=== PATIENT | male | born 1940 | race Caucasian/White ===

== ENCOUNTER 2017-07-11 18:36 | Emergency (ER) | payer OTHER ==
[~2017-07-11] VITALS: Ht 177.8 cm; Wt 112.2 kg
[~2017-07-11 18:36] MED LIST: ACETAMINOPHEN325 M1 PO; ACIDOPHILUS CA1 EAC1 PO; ACIDOPHILUS1 EAC4 PO; ADVAIR HFA120 INHAL1 IH; ADVAIR HFA120 INHALA IH; ALLEGRA180 MG PO; ALPRAZOLAM0.25 M2 PO; ALPRAZOLAM0.25 MG PO; ALPRAZOLAM0.5 MG PO; AMOXICILLIN500 MG PO; ASMANEX HFA13 GM IH; ASMANEX TW200 MICRO1 IH; ASMANEX TW30 INHALAT IH; ASPIRIN81 M1 PO; ASPIRIN81 M2 PO; ASTELIN NASAL SPRAY BOTH NARES; ASTELIN, ASTEPR30 ML NS; ASTEPRO 0.15%30 ML BOTH NARES; ATENOLOL25 MG PO; ATENOLOL50 MG PO; ATROVENT HFA12.9 GM IH; AZITHROMYCIN500 M1 PO; BUMETANIDE1 MG PO; BUMETANIDE2 MG PO; BUMEX1 MG PO; BUMEX2 MG PO; CALCITRIOL0.25 MCG PO; CEFDINIR300 MG PO; CEFTIN500 MG PO; CIPRO500 MG PO; CO Q-10100 MG PO; COENZYME Q10100 M1 PO; COQ-10100 MG PO; COUMADIN2 MG PO; COUMADIN2.5 MG PO; COUMADIN3 MG PO; CYMBALTA30 MG PO; CYMBALTA60 MG PO; DULCOLAX10 MG PO; ERGOCALCIF50000 UNIT PO; GABAPENTIN100 MG PO; GLIMEPIRIDE2 MG PO; HUMALOG KW200 UNIT/1 SC; HUMALOG MI100 UNIT/5 SQ; HUMALOG MI100 UNIT/6 SC; HUMALOG100 UNIT/1 SC; HUMALOG100 UNIT/2 SC; IRON325 M1 PO; LEVEMIR FL100 UNIT/1 SC; LEVOFLOXACIN750 MG PO; LEXAPRO10 MG PO; LEXAPRO5 MG PO; LIPITOR40 MG PO; LISINOPRIL10 MG PO; LO-DOSE ASPIRIN81 M1 PO; LORATADINE10 M2 PO; MEDROL DOSEPAK4 MG PO; METOLAZONE2.5 MG PO; MULTIPLE VITAM1 EACH PO; MULTIVITAMIN1 EAC2 PO; NASACORT AQ16.5 GM BOTH NARES; NASACORT10.8 ML BOTH NARES; NEURONTIN100 MG PO; NOVOLOG MI100 UNIT/M PO; NOVOLOG MI100 UNIT/M SC; NovoLOG Mix 70/30 Vi SC; PERCOCET 5/31 TABLET PO; PHILLIPS'400 MG/5 M PO; POTASSIUM CHLO10 ME3 PO; POTASSIUM CHLO10 ME4 PO; PREDNISONE10 MG PO; PREDNISONE20 MG PO; PREDNISONE5 MG PO; PROBIOTIC1 EAC1 PO; PROBIOTIC1 EAC2 PO; PROTONIX40 MG PO; PROVENTIL HFA6.7 GM IH; PROVENTIL,2.5 MG/0.5 AEROSOL; PROVENTIL,2.5 MG/3 M IH; ROCALTROL0.25 MCG PO; ROPINIROLE HC0.25 MG PO; ROPINIROLE HCL0.5 MG PO; SINGULAIR10 MG PO; TOLTERODINE TART2 M1 PO; TYLENOL EXTRA500 MG PO; TYLENOL WITH C1 EACH PO; ULTRAM50 MG PO; VENTOLIN HFA18 GM IH; VESICARE10 MG PO; VESICARE5 MG PO; VITAMIN B-12500 MC2 PO; VITAMIN B12-FO1 EACH PO; VITAMIN C500 M1 PO; VITAMIN D50000 UNI4 PO; WARFARIN SODIUM1 MG PO; WARFARIN SODIUM2 MG PO; XANAX0.25 MG PO; XANAX0.5 MG PO; XOPENEX HFA15 GM IH; ZOFRAN ODT4 MG PO; ZYVOX600 MG PO
[2017-07-11 19:44] LABS: EOSINOPHIL (%) 0.1 % (0-5); HEMATOCRIT 40.3 % (38.0-50.0); IMMATURE GRANULOCYTE (%) 0.5 % (0.0-0.7); IMMATURE GRANULOCYTE COUNT 0.1 K/uL; INSTRUMENT ABS NEUTROPHIL CT 12.2 K/uL; MCH 31.8 PG (29.0-34.0); MCHC 33.7 G/DL (30.0-36.0); MCV 94.2 FL (86-99); MEAN PLAT.VOLUME 9.3 uM^3 (9.0-12.4); MONOCYTE (%) 13.3 % (3-12); MONOCYTE COUNT 2.1 K/uL (0-0.8); NEUTROPHIL (%) 79.1 % (45-76); NEUTROPHIL COUNT 12.2 K/uL (1.8-6.4); PLATELET COUNT 139 K/uL (156-360); RBC DIS.WIDTH-SD 51.9 % (39-53); RED BLOOD COUNT 4.28 M/uL (4.00-5.50); WHITE BLOOD COUNT 15.4 K/uL (4.1-10.2)
[2017-07-11 19:44] LABS: ADD MIUA? YES; BILIRUBIN NEGATIVE; BLOOD MODERATE; COLOR YELLOW ((YELLOW)); GLUCOSE (STRIP) NEGATIVE; KETONES NEGATIVE; LEUKOCYTES LARGE; NITRITE NEGATIVE; PROTEIN (STRIP) 100; SPECIFIC GRAVITY 1.013 (1.000-1.030); UROBILINOGEN 0.2 MG/DL (0.2-1.0)
[2017-07-11 19:48] LABS: BACTERIA 2+ /HPF; EPITHELIAL CELLS NONE SEEN /HPF; HYALINE CASTS 0-5 /LPF; MUCUS TRACE /LPF; RED BLOOD CELLS 40-50 /HPF (0-5); UCUL ADDED? YES; WHITE BLOOD CELLS TNTC /HPF (0-5)
[2017-07-11 19:49] LABS: INTER. NORMALIZED RATIO 2.4
[2017-07-11 19:53] LABS: CHLORIDE 102 mEq/L (99-109); POTASSIUM 3.5 mEq/L (3.7-5.4); SODIUM 140 mEq/L (136-147)
[2017-07-11 19:55] LABS: GLUCOSE 153 mg/dL (70-99)
[2017-07-11 19:56] LABS: ANION GAP 10 MEQ/L (2-14)
[2017-07-11 19:57] LABS: TOTAL BILIRUBIN 1.3 mg/dL (0.0-1.0)
[2017-07-11 19:59] LABS: ALKALINE PHOSPHATASE 63 IU/L (3-129); GFR ESTIMATE (CALCULATED) 42 mL/min/
[2017-07-11 20:00] LABS: UREA NITROGEN (BUN) 42 mg/dL (9-23)
[2017-07-11 22:00] VITALS: BP 100/76
== END 2017-07-11 22:54 ==
LOC: EME 18:36
PROVIDERS: Emergency Medicine
DX: R10.30 Lower abdominal pain, unspecified (principal); G89.29 Other chronic pain; I34.1 Nonrheumatic mitral (valve) prolapse; I10 Essential (primary) hypertension; Z86.73 Personal history of transient ischemic attack (TIA), and cerebral infarction without residual deficits; K21.9 Gastro-esophageal reflux disease without esophagitis; E11.9 Type 2 diabetes mellitus without complications; J44.9 Chronic obstructive pulmonary disease, unspecified; Z79.01 Long term (current) use of anticoagulants; Z79.4 Long term (current) use of insulin; I42.9 Cardiomyopathy, unspecified; Z79.82 Long term (current) use of aspirin
CPT/HCPCS: 80053; 81003; 85025; 85610; 87086; 99281; 99284

== ENCOUNTER 2017-09-19 20:31 | Inpatient (IN) | payer OTHER ==
[~2017-09-19] VITALS: Ht 177.8 cm; Wt 109.0 kg
[~2017-09-19 20:31] MED LIST changes: +ACIDOPHILUS LA1 EAC2 PO; +ARTIFICIAL TEAR15 M6 RIGHT EYE; +DULCOLAX10 MG PR; +DUONEB 2.5-0.5 M3 ML AEROSOL; +FLEET ENEMA-AD118 ML PR; +LIPITOR20 MG PO; +LOVENOX120 MG/0.8 SC; +MILK OF MAGN PO; +MUCINEX600 MG PO; +NEURONTIN300 MG PO; +TUSSIN100 MG/5 M PO; -VITAMIN D50000 UNI4 PO
[2017-09-19 21:29] LABS: POINT-OF-CARE METER ID UU13113702
[2017-09-19 21:53] LABS: CARBON DIOXIDE (BICARBONATE) 26.8 MEQ/L (20-31)
[2017-09-19 21:53] LABS: HEMATOCRIT 43.4 % (38.0-50.0); MCH 31.9 PG (29.0-34.0); MCHC 33.4 G/DL (30.0-36.0); MCV 95.6 FL (86-99); MEAN PLAT.VOLUME 9.8 uM^3 (9.0-12.4); RBC DIS.WIDTH-CV 14.4 % (11.8-14.6); RED BLOOD COUNT 4.54 M/uL (4.00-5.50); WHITE BLOOD COUNT 17.6 K/uL (4.1-10.2)
[2017-09-19 21:55] LABS: PLATELET COUNT 186 K/uL (156-360)
[2017-09-19 22:03] LABS: CHLORIDE 105 mEq/L (99-109); POTASSIUM 4.3 mEq/L (3.7-5.4); SODIUM 140 mEq/L (136-147)
[2017-09-19 22:06] LABS: GLUCOSE 240 mg/dL (70-99)
[2017-09-19 22:07] LABS: ANION GAP 13 MEQ/L (2-14); TOTAL BILIRUBIN 3.7 mg/dL (0.0-1.0)
[2017-09-19 22:09] LABS: ALKALINE PHOSPHATASE 136 IU/L (3-129); GFR ESTIMATE (CALCULATED) 48 mL/min/
[2017-09-19 22:10] LABS: UREA NITROGEN (BUN) 37 mg/dL (9-23)
[2017-09-19 22:11] LABS: DIRECT BILIRUBIN 2.6 mg/dL (0.0-0.3)
[2017-09-19 22:13] LABS: LIPASE 49 U/L (1.0-51.0)
[2017-09-19 22:26] LABS: INTER. NORMALIZED RATIO 1.2; PROTHROMBIN TIME 13.1 SEC (10.2-12.9)
[2017-09-19 22:31] LABS: TROP-I INTERPRETATION NEGATIVE; TROPONIN-I 0.08 ng/mL (0.0-0.30)
[2017-09-19 22:32] LABS: ADD MIUA? YES; BILIRUBIN NEGATIVE; BLOOD SMALL; GLUCOSE (STRIP) NEGATIVE; KETONES NEGATIVE; LEUKOCYTES LARGE; NITRITE POSITIVE; PROTEIN (STRIP) >=500; SPECIFIC GRAVITY 1.017 (1.000-1.030)
[2017-09-19 22:33] LABS: COLOR YELLOW ((YELLOW))
[2017-09-19 22:43] LABS: CASTS NONE SEEN /LPF; EPITHELIAL CELLS NONE SEEN /HPF; MUCUS NONE SEEN /LPF
[2017-09-19 22:44] LABS: BACTERIA 4+ /HPF; UCUL ADDED? YES; WHITE BLOOD CELLS TNTC /HPF (0-5)
[2017-09-20 06:42] LABS: POINT-OF-CARE METER ID UU13113774
[2017-09-20 07:31] VITALS: BP 114/59
[2017-09-20 11:01] LABS: POINT-OF-CARE METER ID UU13113725
[2017-09-20 11:16] VITALS: BP 132/72
[2017-09-20] MEDS ORDERED: DECARA50000 UNIT PO (13:47)
[2017-09-20] MEDS ORDERED: COUMADIN1 MG PO (14:28)
[2017-09-20] MEDS ORDERED: PROMETHAZINE HC25 M1 PO (14:35)
[2017-09-20 15:59] LABS: POINT-OF-CARE METER ID UU13113774
[2017-09-20 16:01] VITALS: BP 104/68
[2017-09-20 20:11] VITALS: BP 127/59
[2017-09-20 21:12] LABS: POINT-OF-CARE METER ID UU13113725
[2017-09-21 00:12] VITALS: BP 130/65
[2017-09-21 04:32] VITALS: BP 139/66
[2017-09-21 05:50] LABS: POINT-OF-CARE METER ID UU13113725
[2017-09-21 06:06] LABS: HEMATOCRIT 39.5 % (38.0-50.0); MCH 31.3 PG (29.0-34.0); MCHC 32.2 G/DL (30.0-36.0); MCV 97.3 FL (86-99); RBC DIS.WIDTH-SD 53.5 % (39-53); RED BLOOD COUNT 4.06 M/uL (4.00-5.50); WHITE BLOOD COUNT 14.5 K/uL (4.1-10.2)
[2017-09-21 06:40] LABS: CHLORIDE 105 MEQ/L (99-109); GFR ESTIMATE (CALCULATED) 20 mL/min/; GLUCOSE 147 mg/dL (70-99); POTASSIUM 4.9 MEQ/L (3.7-5.4); SODIUM 141 MEQ/L (136-147); TOTAL BILIRUBIN 4.7 MG/DL (0.0-1.0)
[2017-09-21 06:41] LABS: ALKALINE PHOSPHATASE 102 IU/L (3-129); ANION GAP 12 MEQ/L (2-14); SAMPLE HEMOLYSIS CHECK 0; SAMPLE ICTERIC CHECK 1; SAMPLE LIPEMIA CHECK 0
[2017-09-21 06:44] LABS: MEAN PLAT.VOLUME 10.5 uM^3 (9.0-12.4); PLAT.SUFFICIENCY DECREASED
[2017-09-21 06:45] LABS: UREA NITROGEN (BUN) 56 mg/dL (9-23)
[2017-09-21 07:04] LABS: PLATELET COUNT 124 K/uL (156-360)
[2017-09-21 08:20] VITALS: BP 147/70
[2017-09-21 11:47] LABS: POINT-OF-CARE METER ID UU13113774
[2017-09-21 15:37] LABS: TROP-I INTERPRETATION INDETERMINATE; TROPONIN-I 0.34 ng/mL (0.0-0.30)
[2017-09-21 15:49] LABS: POINT-OF-CARE METER ID UU13113774
[2017-09-21 16:08] VITALS: BP 143/84
[2017-09-21 20:00] VITALS: BP 176/81
[2017-09-21 21:23] LABS: POINT-OF-CARE METER ID UU13113774
[2017-09-21 23:40] VITALS: BP 133/78
[2017-09-22 04:35] VITALS: BP 147/74
[2017-09-22 05:43] LABS: HEMATOCRIT 36.4 % (38.0-50.0); MCH 31.4 PG (29.0-34.0); MCHC 32.7 G/DL (30.0-36.0); MEAN PLAT.VOLUME 10.7 uM^3 (9.0-12.4); PLATELET COUNT 106 K/uL (156-360); RBC DIS.WIDTH-CV 14.9 % (11.8-14.6); RBC DIS.WIDTH-SD 52.8 % (39-53); RED BLOOD COUNT 3.79 M/uL (4.00-5.50); WHITE BLOOD COUNT 9.3 K/uL (4.1-10.2)
[2017-09-22 06:05] LABS: ALKALINE PHOSPHATASE 109 IU/L (3-129); ANION GAP 11 MEQ/L (2-14); CHLORIDE 106 MEQ/L (99-109); GFR ESTIMATE (CALCULATED) 15 mL/min/; GLUCOSE 127 mg/dL (70-99); SAMPLE HEMOLYSIS CHECK 0; SAMPLE ICTERIC CHECK 1; SAMPLE LIPEMIA CHECK 0; SODIUM 140 MEQ/L (136-147); TOTAL BILIRUBIN 4.4 MG/DL (0.0-1.0); UREA NITROGEN (BUN) 62 mg/dL (9-23)
[2017-09-22 06:23] LABS: TROP-I INTERPRETATION NEGATIVE; TROPONIN-I 0.25 ng/mL (0.0-0.30)
[2017-09-22 07:10] LABS: POINT-OF-CARE METER ID UU13113725
[2017-09-22 08:34] VITALS: BP 143/70
[2017-09-22 11:04] VITALS: BP 135/73
[2017-09-22 11:19] LABS: POINT-OF-CARE METER ID UU13113774
[2017-09-22 15:57] VITALS: BP 130/76
[2017-09-22 16:20] LABS: POINT-OF-CARE METER ID UU13113774
[2017-09-22 22:01] LABS: POINT-OF-CARE METER ID UU13113774
[2017-09-22 23:58] VITALS: BP 125/68
[2017-09-23 06:10] LABS: HEMATOCRIT 36.4 % (38.0-50.0); MCH 30.5 PG (29.0-34.0); MCV 92.6 FL (86-99); MEAN PLAT.VOLUME 11.1 uM^3 (9.0-12.4); PLATELET COUNT 120 K/uL (156-360); RBC DIS.WIDTH-CV 14.7 % (11.8-14.6); RBC DIS.WIDTH-SD 51.1 % (39-53); RED BLOOD COUNT 3.93 M/uL (4.00-5.50); WHITE BLOOD COUNT 10.3 K/uL (4.1-10.2)
[2017-09-23 06:12] LABS: POINT-OF-CARE METER ID UU13113725
[2017-09-23 06:41] LABS: ANION GAP 12 MEQ/L (2-14); CHLORIDE 107 MEQ/L (99-109); GFR ESTIMATE (CALCULATED) 19 mL/min/; IRON 28 MCG/DL (35-150); POTASSIUM 4.4 MEQ/L (3.7-5.4); SAMPLE HEMOLYSIS CHECK 0; SAMPLE ICTERIC CHECK 1; SAMPLE LIPEMIA CHECK 0; SODIUM 140 MEQ/L (136-147); UREA NITROGEN (BUN) 59 mg/dL (9-23)
[2017-09-23 06:43] LABS: GLUCOSE 70 mg/dL (70-99)
[2017-09-23 06:44] VITALS: BP 178/86
[2017-09-23 08:23] LABS: INTACT PARATHYROID HORMONE 31 pg/mL (10-69)
[2017-09-23 08:28] VITALS: BP 160/78
[2017-09-23 11:41] LABS: POINT-OF-CARE METER ID UU13113725
[2017-09-23 15:01] VITALS: BP 135/66
[2017-09-23 16:27] LABS: POINT-OF-CARE METER ID UU13113725
[2017-09-23 21:12] LABS: POINT-OF-CARE METER ID UU13113774
[2017-09-23 23:24] VITALS: BP 149/74
[2017-09-24 06:01] LABS: POINT-OF-CARE METER ID UU13113774
[2017-09-24 06:56] LABS: HEMATOCRIT 36.6 % (38.0-50.0); MCH 30.6 PG (29.0-34.0); MCHC 32.8 G/DL (30.0-36.0); MCV 93.4 FL (86-99); MEAN PLAT.VOLUME 10.4 uM^3 (9.0-12.4); PLATELET COUNT 114 K/uL (156-360); RBC DIS.WIDTH-CV 14.9 % (11.8-14.6); RBC DIS.WIDTH-SD 51.7 % (39-53); RED BLOOD COUNT 3.92 M/uL (4.00-5.50); WHITE BLOOD COUNT 8.6 K/uL (4.1-10.2)
[2017-09-24 07:31] VITALS: BP 137/67
[2017-09-24 07:52] LABS: ANION GAP 9 MEQ/L (2-14); CHLORIDE 109 MEQ/L (99-109); GFR ESTIMATE (CALCULATED) 25 mL/min/; POTASSIUM 4.3 MEQ/L (3.7-5.4); SAMPLE HEMOLYSIS CHECK 0; SAMPLE ICTERIC CHECK 1; SAMPLE LIPEMIA CHECK 0; SODIUM 140 MEQ/L (136-147); UREA NITROGEN (BUN) 57 mg/dL (9-23)
[2017-09-24 08:01] LABS: GLUCOSE 129 mg/dL (70-99)
[2017-09-24 09:57] LABS: ALKALINE PHOSPHATASE 171 IU/L (3-129)
[2017-09-24 11:29] LABS: POINT-OF-CARE METER ID UU13113725
[2017-09-24 15:53] VITALS: BP 116/78
[2017-09-24 17:34] LABS: POINT-OF-CARE METER ID UU13113774
[2017-09-24 21:51] LABS: POINT-OF-CARE METER ID UU13113774
[2017-09-24 23:34] VITALS: BP 146/74
[2017-09-25 06:48] LABS: ANION GAP 11 MEQ/L (2-14); CHLORIDE 107 MEQ/L (99-109); GFR ESTIMATE (CALCULATED) 25 mL/min/; GLUCOSE 147 mg/dL (70-99); POTASSIUM 4.7 MEQ/L (3.7-5.4); SAMPLE HEMOLYSIS CHECK 1; SAMPLE ICTERIC CHECK 1; SAMPLE LIPEMIA CHECK 0; SODIUM 139 MEQ/L (136-147); UREA NITROGEN (BUN) 56 mg/dL (9-23)
[2017-09-25 07:19] LABS: POINT-OF-CARE METER ID UU13113774
[2017-09-25 07:26] VITALS: BP 150/70
[2017-09-25 11:53] LABS: POINT-OF-CARE METER ID UU13113774
[2017-09-25 15:42] VITALS: BP 134/68
[2017-09-25 16:50] LABS: POINT-OF-CARE METER ID UU13113725
[2017-09-25 21:21] LABS: POINT-OF-CARE METER ID UU13113774
[2017-09-25 23:38] VITALS: BP 144/65
[2017-09-26 06:12] LABS: POINT-OF-CARE METER ID UU13113774
[2017-09-26 06:26] LABS: ANION GAP 9 MEQ/L (2-14); CHLORIDE 110 MEQ/L (99-109); GFR ESTIMATE (CALCULATED) 34 mL/min/; GLUCOSE 150 mg/dL (70-99); POTASSIUM 4.3 MEQ/L (3.7-5.4); SAMPLE HEMOLYSIS CHECK 0; SAMPLE ICTERIC CHECK 0; SAMPLE LIPEMIA CHECK 0; SODIUM 140 MEQ/L (136-147); UREA NITROGEN (BUN) 47 mg/dL (9-23)
[2017-09-26 07:56] VITALS: BP 135/64
[2017-09-26 10:10] LABS: HEMATOCRIT 35.5 % (38.0-50.0); MCH 30.9 PG (29.0-34.0); MCHC 32.7 G/DL (30.0-36.0); MCV 94.4 FL (86-99); MEAN PLAT.VOLUME 10.7 uM^3 (9.0-12.4); RBC DIS.WIDTH-CV 15.4 % (11.8-14.6); RBC DIS.WIDTH-SD 53.8 % (39-53); RED BLOOD COUNT 3.76 M/uL (4.00-5.50)
[2017-09-26 10:22] LABS: PLATELET COUNT 174 K/uL (156-360)
[2017-09-26 10:45] LABS: BASOPHIL COUNT 0.1 K/uL (0-0.1); EOSINOPHIL (%) 5.3 % (0-5); EOSINOPHIL COUNT 0.6 K/uL (0-0.3); IMMATURE GRANULOCYTE (%) 2.6 % (0.0-0.7); IMMATURE GRANULOCYTE COUNT 0.3 K/uL; INSTRUMENT ABS NEUTROPHIL CT 7.1 K/uL; LYMPHOCYTE COUNT 1.2 K/uL (1.0-2.8); MONOCYTE (%) 15.5 % (3-12); MONOCYTE COUNT 1.7 K/uL (0-0.8); NEUTROPHIL (%) 65.1 % (45-76); NEUTROPHIL COUNT 7.1 K/uL (1.8-6.4); PLAT.SUFFICIENCY ADEQUATE
[2017-09-26 11:35] LABS: POINT-OF-CARE METER ID UU13113774
[2017-09-26 13:09] VITALS: BP 139/63
[2017-09-26 16:18] LABS: POINT-OF-CARE METER ID UU13113725
[2017-09-26] MEDS ORDERED: LOPRESSOR25 MG PO (16:29)
[2017-09-26] MEDS ORDERED: LEVEMIR100 UNIT/2 SC ×2 (16:30)
[2017-09-26] MEDS ORDERED: COUMADIN4 MG PO (16:32)
[2017-09-26 16:38] VITALS: BP 131/62
[2017-09-26 20:38] VITALS: BP 152/68
[2017-09-26 22:28] LABS: POINT-OF-CARE METER ID UU13113725
[2017-09-27] VITALS: BP 143/67
[2017-09-27 06:24] LABS: INTER. NORMALIZED RATIO 1.3; PROTHROMBIN TIME 15.1 SEC (10.2-12.9)
[2017-09-27 06:34] LABS: ANION GAP 9 MEQ/L (2-14); CHLORIDE 111 MEQ/L (99-109); GFR ESTIMATE (CALCULATED) 39 mL/min/; GLUCOSE 139 mg/dL (70-99); POTASSIUM 4.2 MEQ/L (3.7-5.4); SAMPLE HEMOLYSIS CHECK 0; SAMPLE ICTERIC CHECK 0; SAMPLE LIPEMIA CHECK 0; SODIUM 141 MEQ/L (136-147); UREA NITROGEN (BUN) 41 mg/dL (9-23)
[2017-09-27 06:37] LABS: POINT-OF-CARE METER ID UU13113725
[2017-09-27 06:46] VITALS: BP 154/69
== END 2017-09-27 08:38 | DRG 444 ==
LOC: EME → EDBD 20:31 → EME 20:31 → 5EAST 09-20 02:47 → EDOF 09-20 02:47 → ENRESERV 09-20 02:48 → 5EAST 09-20 04:02
PROVIDERS: Emergency Medicine; Family Medicine; Internal Medicine; Internal Medicine Cardiovascular Disease; Internal Medicine Nephrology; Surgery
PROC: 0F9430Z Drainage of Gallbladder with Drainage Device, Percutaneous Approach (ICD-10-PCS; principal; 2017-09-22)
DX: K80.00 Calculus of gallbladder with acute cholecystitis without obstruction (principal); N39.0 Urinary tract infection, site not specified; J18.9 Pneumonia, unspecified organism; Y95 Nosocomial condition; N17.9 Acute kidney failure, unspecified; T50.8X5A Adverse effect of diagnostic agents, initial encounter; E11.649 Type 2 diabetes mellitus with hypoglycemia without coma; R74.8 Abnormal levels of other serum enzymes; I13.0 Hypertensive heart and chronic kidney disease with heart failure and stage 1 through stage 4 chronic kidney disease, or unspecified chronic kidney disease; I50.9 Heart failure, unspecified; E11.22 Type 2 diabetes mellitus with diabetic chronic kidney disease; N18.3 Chronic kidney disease, stage 3 (moderate); E11.40 Type 2 diabetes mellitus with diabetic neuropathy, unspecified; E78.5 Hyperlipidemia, unspecified; G47.33 Obstructive sleep apnea (adult) (pediatric); I48.1 Persistent atrial fibrillation; I34.0 Nonrheumatic mitral (valve) insufficiency; I42.0 Dilated cardiomyopathy; I42.2 Other hypertrophic cardiomyopathy; N40.1 Benign prostatic hyperplasia with lower urinary tract symptoms; R33.8 Other retention of urine; N25.81 Secondary hyperparathyroidism of renal origin; K21.9 Gastro-esophageal reflux disease without esophagitis; E55.9 Vitamin D deficiency, unspecified; F32.9 Major depressive disorder, single episode, unspecified; F41.9 Anxiety disorder, unspecified; J39.8 Other specified diseases of upper respiratory tract; D63.1 Anemia in chronic kidney disease; D50.9 Iron deficiency anemia, unspecified; D69.6 Thrombocytopenia, unspecified; F03.90 Unspecified dementia, unspecified severity, without behavioral disturbance, psychotic disturbance, mood disturbance, and anxiety; J44.9 Chronic obstructive pulmonary disease, unspecified; E66.01 Morbid (severe) obesity due to excess calories; I69.351 Hemiplegia and hemiparesis following cerebral infarction affecting right dominant side; Z95.0 Presence of cardiac pacemaker; Z79.4 Long term (current) use of insulin; Z79.01 Long term (current) use of anticoagulants; Z86.14 Personal history of Methicillin resistant Staphylococcus aureus infection; Z88.2 Allergy status to sulfonamides
CPT/HCPCS: 49406; 71010; 71275; 74177; 76770; 80048; 80053; 80069; 80076; 81003; 82306; 82607; 82746; 82803; 82948; 83540; 83605; 83690; 83970; 84466; 84484; 85025; 85027; 85379; 85610; 87070; 87075; 87077; 87086; 87186; 87205; 93005; 94640; 94640 76; 94660; 94760; 94799; 99202; 99281; 99285; C1769; J1650; J1815; J2270; J2405; J2543; J3010; J3370; J7030; J7050

== ENCOUNTER 2017-10-25 17:09 | Emergency (ER) | payer OTHER ==
[~2017-10-25] VITALS: Ht 172.7 cm; Wt 123.0 kg
[~2017-10-25 17:09] MED LIST changes: +COUMADIN1 MG PO; +COUMADIN4 MG PO; +DECARA50000 UNIT PO; +LEVEMIR100 UNIT/2 SC; +LOPRESSOR25 MG PO; +PROMETHAZINE HC25 M1 PO
[2017-10-25 19:16] LABS: CHLORIDE 100 mEq/L (99-109); SODIUM 139 mEq/L (136-147)
[2017-10-25 19:19] LABS: GLUCOSE 165 mg/dL (70-99); POTASSIUM 4.6 mEq/L (3.7-5.4)
[2017-10-25 19:20] LABS: ANION GAP 11 MEQ/L (2-14); TOTAL BILIRUBIN 1.6 mg/dL (0.0-1.0)
[2017-10-25 19:22] LABS: ALKALINE PHOSPHATASE 177 IU/L (3-129); GFR ESTIMATE (CALCULATED) 45 mL/min/ (58.99-99999)
[2017-10-25 19:23] LABS: UREA NITROGEN (BUN) 26 mg/dL (9-23)
[2017-10-25 19:24] LABS: DIRECT BILIRUBIN 0.6 mg/dL (0.0-0.3)
[2017-10-25 19:25] LABS: LIPASE 19 U/L (1.0-51.0)
[2017-10-25 19:32] LABS: HEMATOCRIT 35.9 % (38.0-50.0); MCH 30.7 PG (29.0-34.0); MEAN PLAT.VOLUME 10.1 uM^3 (9.0-12.4); PLATELET COUNT 124 K/uL (156-360); RBC DIS.WIDTH-CV 15.9 % (11.8-14.6); RBC DIS.WIDTH-SD 55.8 % (39-53); RED BLOOD COUNT 3.74 M/uL (4.00-5.50); WHITE BLOOD COUNT 10.3 K/uL (4.1-10.2)
[2017-10-25 21:30] VITALS: BP 145/58
== END 2017-10-25 21:51 ==
LOC: EME 17:09
PROVIDERS: Emergency Medicine
DX: Z43.4 Encounter for attention to other artificial openings of digestive tract (principal); I50.9 Heart failure, unspecified; E11.9 Type 2 diabetes mellitus without complications; J44.9 Chronic obstructive pulmonary disease, unspecified; I10 Essential (primary) hypertension; K21.9 Gastro-esophageal reflux disease without esophagitis; F32.9 Major depressive disorder, single episode, unspecified; F41.9 Anxiety disorder, unspecified; Z79.4 Long term (current) use of insulin; Z85.9 Personal history of malignant neoplasm, unspecified; Z86.73 Personal history of transient ischemic attack (TIA), and cerebral infarction without residual deficits; Z95.0 Presence of cardiac pacemaker; Z88.2 Allergy status to sulfonamides; Z88.8 Allergy status to other drugs, medicaments and biological substances
CPT/HCPCS: 80048; 80076; 83690; 85027; 99281; 99284

== ENCOUNTER 2017-11-15 08:00 | Emergency (ER) | payer OTHER ==
[~2017-11-15] VITALS: Ht 177.8 cm; Wt 114.1 kg
[2017-11-15 08:50] LABS: BASOPHIL (%) 0.7 % (0-1); BASOPHIL COUNT 0.1 K/uL (0-0.1); EOSINOPHIL (%) 5.3 % (0-5); EOSINOPHIL COUNT 0.5 K/uL (0-0.3); HEMATOCRIT 39.3 % (38.0-50.0); HEMOGLOBIN 12.9 G/DL (12.5-16.6); IMMATURE GRANULOCYTE (%) 0.5 % (0.0-0.7); LYMPHOCYTE (%) 11.4 % (15-42); MCH 31.1 PG (29.0-34.0); MCHC 32.8 G/DL (30.0-36.0); MCV 94.7 FL (86-99); MONOCYTE COUNT 1.2 K/uL (0-0.8); NEUTROPHIL (%) 68.1 % (45-76); PLATELET COUNT 138 K/uL (156-360); RBC DIS.WIDTH-CV 16.6 % (11.8-14.6); RBC DIS.WIDTH-SD 57.7 % (39-53); RED BLOOD COUNT 4.15 M/uL (4.00-5.50); WHITE BLOOD COUNT 8.7 K/uL (4.1-10.2)
[2017-11-15 09:23] LABS: CHLORIDE 107 mEq/L (99-109); POTASSIUM 3.7 mEq/L (3.7-5.4); SODIUM 144 mEq/L (136-147)
[2017-11-15 09:26] LABS: GLUCOSE 133 mg/dL (70-99); TOTAL PROTEIN 6.6 g/dL (6.4-8.3)
[2017-11-15 09:28] LABS: TOTAL BILIRUBIN 1.3 mg/dL (0.0-1.0)
[2017-11-15 09:29] LABS: ALKALINE PHOSPHATASE 205 IU/L (3-129); CREATININE 1.7 mg/dL (0.6-1.3); GFR ESTIMATE (CALCULATED) 42 mL/min/ (58.99-99999)
[2017-11-15 09:31] LABS: AST (GOT) 34 IU/L (2-34); UREA NITROGEN (BUN) 29 mg/dL (9-23)
[2017-11-15 09:32] LABS: ALT (GPT) 25 IU/L (3-49)
[2017-11-15 09:33] LABS: LIPASE 18 U/L (1.0-51.0)
[2017-11-15 12:18] VITALS: BP 164/84
== END 2017-11-15 12:19 ==
LOC: EME 08:00
PROVIDERS: Emergency Medicine
DX: T85.520A Displacement of bile duct prosthesis, initial encounter (principal); I50.9 Heart failure, unspecified; I11.0 Hypertensive heart disease with heart failure; I12.9 Hypertensive chronic kidney disease with stage 1 through stage 4 chronic kidney disease, or unspecified chronic kidney disease; E11.22 Type 2 diabetes mellitus with diabetic chronic kidney disease; N18.9 Chronic kidney disease, unspecified; Z86.73 Personal history of transient ischemic attack (TIA), and cerebral infarction without residual deficits; K21.9 Gastro-esophageal reflux disease without esophagitis; J44.9 Chronic obstructive pulmonary disease, unspecified; F41.9 Anxiety disorder, unspecified; F32.9 Major depressive disorder, single episode, unspecified; E11.9 Type 2 diabetes mellitus without complications; Z86.14 Personal history of Methicillin resistant Staphylococcus aureus infection; F79 Unspecified intellectual disabilities; Z95.0 Presence of cardiac pacemaker; Z79.4 Long term (current) use of insulin; Z88.8 Allergy status to other drugs, medicaments and biological substances
CPT/HCPCS: 80053; 83690; 85025; 99281; 99284

== ENCOUNTER 2018-04-17 22:32 | Inpatient (IN) | payer OTHER ==
[~2018-04-17] VITALS: Ht 177.8 cm; Wt 109.2 kg
[~2018-04-17 22:32] MED LIST changes: -LEXAPRO10 MG PO; +LEXAPRO20 MG PO
[2018-04-17 23:04] LABS: PCO2 39 mm Hg (35-45); pH 7.43 (7.35-7.45)
[2018-04-17 23:05] LABS: BASE EXCESS 1.6 mEq/L (-3 to +3); BICARBONATE 25.9 mEq/L (22-26); O2 SATURATION (CALCULATED) 94 % (95-99); PO2 63 mm Hg (80-100)
[2018-04-17 23:23] LABS: HEMATOCRIT 43.2 % (38.0-50.0); HEMOGLOBIN 14.9 G/DL (12.5-16.6); MCH 32.3 PG (29.0-34.0); MCHC 34.5 G/DL (30.0-36.0); MCV 93.5 FL (86-99); PLATELET COUNT 151 K/uL (156-360); RBC DIS.WIDTH-CV 14.1 % (11.8-14.6); RBC DIS.WIDTH-SD 47.6 % (39-53); RED BLOOD COUNT 4.62 M/uL (4.00-5.50); WHITE BLOOD COUNT 19.5 K/uL (4.1-10.2)
[2018-04-17 23:34] LABS: ALBUMIN 3.6 g/dL (3.2-4.8); CHLORIDE 102 mEq/L (99-109); POTASSIUM 4.5 mEq/L (3.7-5.4); SODIUM 140 mEq/L (136-147)
[2018-04-17 23:36] LABS: GLUCOSE 266 mg/dL (70-99); TOTAL PROTEIN 7.3 g/dL (6.4-8.3)
[2018-04-17 23:38] LABS: TOTAL BILIRUBIN 1.2 mg/dL (0.0-1.0)
[2018-04-17 23:40] LABS: ALKALINE PHOSPHATASE 150 IU/L (3-129); CREATININE 1.9 mg/dL (0.6-1.3); GFR ESTIMATE (CALCULATED) 37 mL/min/ (58.99-99999)
[2018-04-17 23:41] LABS: UREA NITROGEN (BUN) 53 mg/dL (9-23)
[2018-04-17 23:42] LABS: AST (GOT) 41 IU/L (2-34)
[2018-04-17 23:43] LABS: ALT (GPT) 39 IU/L (3-49)
[2018-04-17 23:44] LABS: TROP-I INTERPRETATION NEGATIVE; TROPONIN-I 0.04 ng/mL (0.0-0.30)
[2018-04-18] MEDS ORDERED: ROBITUSSIN100 MG/5 M PO (01:35)
[2018-04-18] MEDS ORDERED: ALBUTEROL2.5 MG/3 M IH (01:37)
[2018-04-18] MEDS ORDERED: BUMEX2 MG PO (01:40)
[2018-04-18] MEDS ORDERED: KLOR-CON M2020 MEQ PO (01:41)
[2018-04-18] MEDS ORDERED: COUMADIN2 MG PO (02:01)
[2018-04-18] MEDS ORDERED: COUMADIN1 MG PO ×2 (02:02→02:04)
[2018-04-18] MEDS ORDERED: PERCOCET 5/31 TABLET PO (02:09)
[2018-04-18 03:24] VITALS: BP 130/63
[2018-04-18 07:57] VITALS: BP 117/51
[2018-04-18 12:11] VITALS: BP 130/60
[2018-04-18 15:35] VITALS: BP 131/57
[2018-04-18] MEDS ORDERED: EFFEXOR37.5 MG PO (17:33)
[2018-04-18] MEDS ORDERED: EFFEXOR75 MG PO (17:35)
[2018-04-18 19:07] VITALS: BP 128/62
[2018-04-18 22:58] VITALS: BP 124/60
[2018-04-19 03:32] VITALS: BP 131/64
[2018-04-19 07:05] VITALS: BP 134/67
[2018-04-19 12:14] VITALS: BP 137/64
[2018-04-19 14:21] LABS: INTER. NORMALIZED RATIO 1.6
[2018-04-19 16:00] VITALS: BP 139/76
[2018-04-19 19:10] VITALS: BP 124/69
[2018-04-19 23:00] VITALS: BP 129/82
[2018-04-20 06:40] LABS: BASOPHIL (%) 0.4 % (0-1); BASOPHIL COUNT 0.1 K/uL (0-0.1); EOSINOPHIL (%) 3.2 % (0-5); EOSINOPHIL COUNT 0.4 K/uL (0-0.3); HEMATOCRIT 39.5 % (38.0-50.0); HEMOGLOBIN 13.1 G/DL (12.5-16.6); IMMATURE GRANULOCYTE (%) 0.5 % (0.0-0.7); LYMPHOCYTE (%) 6.5 % (15-42); LYMPHOCYTE COUNT 0.8 K/uL (1.0-2.8); MCH 31.8 PG (29.0-34.0); MCHC 33.2 G/DL (30.0-36.0); MCV 95.9 FL (86-99); MONOCYTE (%) 12.9 % (3-12); MONOCYTE COUNT 1.5 K/uL (0-0.8); NEUTROPHIL (%) 76.5 % (45-76); NEUTROPHIL COUNT 8.9 K/uL (1.8-6.4); PLATELET COUNT 140 K/uL (156-360); RBC DIS.WIDTH-CV 14.1 % (11.8-14.6); RBC DIS.WIDTH-SD 49.7 % (39-53); RED BLOOD COUNT 4.12 M/uL (4.00-5.50); WHITE BLOOD COUNT 11.6 K/uL (4.1-10.2)
[2018-04-20 06:56] LABS: INTER. NORMALIZED RATIO 1.8
[2018-04-20 07:08] LABS: CHLORIDE 101 MEQ/L (99-109); CREATININE 1.9 MG/DL (0.6-1.3); GFR ESTIMATE (CALCULATED) 37 mL/min/ (58.99-99999); GLUCOSE 163 mg/dL (70-99); POTASSIUM 3.6 MEQ/L (3.7-5.4); SODIUM 142 MEQ/L (136-147); UREA NITROGEN (BUN) 49 mg/dL (9-23)
[2018-04-20 08:12] VITALS: BP 108/53
[2018-04-20] MEDS ORDERED: COUMADIN1 MG PO (15:48)
[2018-04-20] MEDS ORDERED: CEFTIN500 MG PO (15:49)
[2018-04-20] MEDS ORDERED: TRADJENTA5 MG PO (15:53)
== END 2018-04-20 18:30 | DRG 191 ==
LOC: EME → EDBD 22:32 → 2EAST 04-18 02:07 → EDOF 04-18 02:07 → ENRESERV 04-18 02:09 → 2EAST 04-18 02:50
PROVIDERS: Emergency Medicine; Internal Medicine
PROC: 5A09357 Assistance with Respiratory Ventilation, Less than 24 Consecutive Hours, Continuous Positive Airway Pressure (ICD-10-PCS; principal; 2018-04-19)
DX: J44.0 Chronic obstructive pulmonary disease with (acute) lower respiratory infection (principal); I13.0 Hypertensive heart and chronic kidney disease with heart failure and stage 1 through stage 4 chronic kidney disease, or unspecified chronic kidney disease; I69.354 Hemiplegia and hemiparesis following cerebral infarction affecting left non-dominant side; I42.2 Other hypertrophic cardiomyopathy; I50.30 Unspecified diastolic (congestive) heart failure; F33.9 Major depressive disorder, recurrent, unspecified; J44.1 Chronic obstructive pulmonary disease with (acute) exacerbation; J20.9 Acute bronchitis, unspecified; E66.9 Obesity, unspecified; G47.33 Obstructive sleep apnea (adult) (pediatric); E11.22 Type 2 diabetes mellitus with diabetic chronic kidney disease; N18.3 Chronic kidney disease, stage 3 (moderate); K21.9 Gastro-esophageal reflux disease without esophagitis; I48.2 Chronic atrial fibrillation; F41.9 Anxiety disorder, unspecified; Z68.33 Body mass index [BMI] 33.0-33.9, adult; Z79.01 Long term (current) use of anticoagulants; Z95.0 Presence of cardiac pacemaker
CPT/HCPCS: 36415; 36600; 71045; 80048; 80053; 82803; 82948; 83605; 83880; 84484; 85025; 85027; 85610; 86850; 86900; 86901; 87040; 87070; 87205; 87641; 93005; 94640; 94640 76; 94660; 94799; 99202; 99281; 99285; J0696; J1815; J1940; J1956; J2543; J3370

== ENCOUNTER 2018-05-31 23:45 | Observation (INO) | payer OTHER ==
[~2018-05-31] VITALS: Ht 177.8 cm; Wt 114.6 kg
[~2018-05-31 23:45] MED LIST changes: +ALBUTEROL2.5 MG/3 M IH; +EFFEXOR37.5 MG PO; +EFFEXOR75 MG PO; +KLOR-CON M2020 MEQ PO; +ROBITUSSIN100 MG/5 M PO; +TRADJENTA5 MG PO
[2018-06-01 00:30] LABS: BASOPHIL (%) 0.6 % (0-1); BASOPHIL COUNT 0.1 K/uL (0-0.1); CHLORIDE 106 mEq/L (99-109); EOSINOPHIL (%) 4.1 % (0-5); EOSINOPHIL COUNT 0.4 K/uL (0-0.3); HEMATOCRIT 37.7 % (38.0-50.0); HEMOGLOBIN 13.1 G/DL (12.5-16.6); IMMATURE GRANULOCYTE (%) 0.4 % (0.0-0.7); LYMPHOCYTE (%) 13.9 % (15-42); LYMPHOCYTE COUNT 1.4 K/uL (1.0-2.8); MCH 32.2 PG (29.0-34.0); MCHC 34.7 G/DL (30.0-36.0); MCV 92.6 FL (86-99); MONOCYTE (%) 13.1 % (3-12); MONOCYTE COUNT 1.3 K/uL (0-0.8); NEUTROPHIL (%) 67.9 % (45-76); NEUTROPHIL COUNT 6.7 K/uL (1.8-6.4); PLATELET COUNT 165 K/uL (156-360); POTASSIUM 3.6 mEq/L (3.7-5.4); RBC DIS.WIDTH-CV 13.5 % (11.8-14.6); RBC DIS.WIDTH-SD 45.8 % (39-53); RED BLOOD COUNT 4.07 M/uL (4.00-5.50); SODIUM 142 mEq/L (136-147); WHITE BLOOD COUNT 9.8 K/uL (4.1-10.2)
[2018-06-01 00:32] LABS: GLUCOSE 235 mg/dL (70-99)
[2018-06-01 00:36] LABS: CREATININE 1.8 mg/dL (0.6-1.3); GFR ESTIMATE (CALCULATED) 39 mL/min/ (58.99-99999); UREA NITROGEN (BUN) 42 mg/dL (9-23)
[2018-06-01 00:42] LABS: TROP-I INTERPRETATION NEGATIVE; TROPONIN-I 0.05 ng/mL (0.0-0.30)
[2018-06-01 01:17] LABS: INTER. NORMALIZED RATIO 2.4
[2018-06-01 01:20] LABS: PTT 40.2 SEC (25-37)
[2018-06-01 05:13] VITALS: BP 130/67
[2018-06-01] MEDS ORDERED: EFFEXOR XR75 MG PO (11:38)
[2018-06-01] MEDS ORDERED: TRADJENTA5 MG PO (11:39)
[2018-06-01] MEDS ORDERED: JANUVIA25 M1 PO (11:40)
[2018-06-01] MEDS ORDERED: EFFEXOR XR37.5 MG PO (11:40)
[2018-06-01 11:41] VITALS: BP 169/89
[2018-06-01] MEDS ORDERED: COUMADIN2 MG PO (11:43)
[2018-06-01] MEDS ORDERED: TYLENOL REGULA325 MG PO (11:46)
[2018-06-01] MEDS ORDERED: ARTIFICIAL TEAR1510 BOTH EYES (11:48)
[2018-06-01 11:51] VITALS: BP 145/71
[2018-06-01 11:52] LABS: TROP-I INTERPRETATION NEGATIVE; TROPONIN-I 0.07 ng/mL (0.0-0.30)
== END 2018-06-01 16:39 ==
LOC: EME 23:45 → EDOF 06-01 04:21 → 4SOUTH 06-01 04:21 → EDOF 06-01 04:21 → ENRESERV 06-01 04:22 → 4SOUTH 06-01 05:03
PROVIDERS: Emergency Medicine; Physician Assistant
DX: R07.89 Other chest pain (principal); R06.02 Shortness of breath; R61 Generalized hyperhidrosis; I27.20 Pulmonary hypertension, unspecified; I42.0 Dilated cardiomyopathy; I48.2 Chronic atrial fibrillation; I25.10 Atherosclerotic heart disease of native coronary artery without angina pectoris; E87.6 Hypokalemia; Z79.01 Long term (current) use of anticoagulants; I10 Essential (primary) hypertension; E78.5 Hyperlipidemia, unspecified; E11.9 Type 2 diabetes mellitus without complications; G47.30 Sleep apnea, unspecified; K21.9 Gastro-esophageal reflux disease without esophagitis; I69.354 Hemiplegia and hemiparesis following cerebral infarction affecting left non-dominant side; Z82.49 Family history of ischemic heart disease and other diseases of the circulatory system; Z99.81 Dependence on supplemental oxygen; F32.9 Major depressive disorder, single episode, unspecified; F41.9 Anxiety disorder, unspecified; Z88.2 Allergy status to sulfonamides
CPT/HCPCS: 71045; 80048; 84484; 85025; 85610; 85610 GA; 85730; 85730 GA; 93005; 94799; 99281; 99285; G0378